=== PATIENT | male | born 1935 | race Caucasian/White ===

== ENCOUNTER 2019-08-17 10:53 | Outpatient (CLI) | payer MEDICARE, BC ==
[~2019-08-17] VITALS: Ht 180.3 cm; Wt 96.9 kg
[~2019-08-17 10:53] MED LIST: ASPIRIN 81M81 MG/TA2 PO; GLUCOPHAGE500 MG/TAB PO; LIPITOR 40MG TA40 MG PO; MYSOLINE 250MG250 MG PO; PRESERVISION1 SGL PO; PRINIVIL20 MG PO; TOPROL XL 25MG25 MG PO
[2019-08-17] MEDS ORDERED: VITAMIN B122500 MCG SL (11:08)
[2019-08-17] MEDS ORDERED: VITAMINC1000TA PO (11:09)
[2019-08-17 11:46] VITALS: BP 130/66; PULSE 75; TEMP 98
[2019-08-17 12:09] LABS: INR 1.2 (0.8-3.0)
[2019-08-17 12:11] LABS: HEMOGLOBIN 12.4 g/dl (13.5-18.0); MEAN CELL VOLUME 96 fl (80.0-100.0); MEAN CORPUSCULAR HEMOGLOBIN 33 pg (27.0-31.0); MEAN CORPUSCULAR HGB CONC 34 g/dl (33.0-37.0); MEAN PLATELET VOLUME 9.9 fl (7.4-10.4); PLATELET COUNT 177 K/mm3 (130-400); REDCELL DISTRIBUTION WIDTH-CV 13.3 % (11.5-14.5)
[2019-08-17 12:15] LABS: HEMATOCRIT 36.6 % (42.0-52.0)
[2019-08-17 12:23] LABS: CALCIUM 8.7 mg/dL (8.4-10.2); CREATININE, serum 0.75 (0.66-1.25); POTASSIUM 4.5 mmol/L (3.4-5.0)
[2019-08-17 13:11] VITALS: BP 132/71; PULSE 67; TEMP 98
--- NOTE | 2019-08-17 13:11 | NUR ---
SHAE complete, pt resting in bed. Denies pain and needs at this time. VSS
[2019-08-17 13:26] VITALS: BP 132/70; PULSE 67; TEMP 98
[2019-08-17 13:56] VITALS: BP 139/71; PULSE 70; TEMP 98
[2019-08-17 14:11] VITALS: BP 142/69; PULSE 70; TEMP 98
[2019-08-17 15:00] VITALS: BP 144/62; PULSE 68; TEMP 98
--- NOTE | 2019-08-17 15:00 | NUR ---
INT discontinued intact. Discharge instructions given. Transferred to private car by dane
== END 2019-08-17 15:15 | disposition home or self-care (01) ==
LOC: COL.RAD 10:53
PROVIDERS: Internal Medicine Cardiovascular Disease
DX: I08.0 Rheumatic disorders of both mitral and aortic valves (principal)
CPT/HCPCS: J2704; J7030